=== PATIENT | female | born 1970 | race Caucasian/White ===

== ENCOUNTER → 2018-11-04 10:38 | Outpatient (CLI) | payer MEDICARE, SELFPAY ==
--- NOTE | 2018-11-04 10:54 | US_ITS ---
US thyroid COMPARISON: None HISTORY: Suspected thyroid enlargement and thyroid nodules TECHNIQUE: Targeted ultrasound the thyroid FINDINGS: The isthmus of the gland is prominent measuring 0.5 cm. The right lobe measures 1.8 x 4.1 x 1.6 cm. The left lobe measures 1.2 x 4.4 x 1.7 cm. There is a tiny hypoechoic nodules too small to characterize upper pole right lobe measuring 0.4 x 0.4 x 0.2 cm. This likely is a cyst. Is a second hypoechoic solid nodule lower pole measuring 0.8 x 0.8 x 0.7 cm. There is a third hypoechoic nodule lower pole measuring 0.5 x 0.5 0.3 cm and this likely solid as well. There is a small hypoechoic nodule mid pole left lobe measuring 0.3 x 0.5 x 0.4 cm which appears be solid. Second solid nodule seen lower pole measuring 0.6 x 1.1 x 0.7 cm. Impression: Multinodular goiter
== END ==
PROVIDERS: PCP Nurse Practitioner Family; Visit Provider Nurse Practitioner Family
DX: E04.1 Nontoxic single thyroid nodule (principal)
CPT/HCPCS: 76536

== ENCOUNTER → 2018-11-21 13:26 | Outpatient (CLI) | payer MEDICARE, SELFPAY ==
[2018-11-21 14:47] LABS: Thyroid Stimulating Hormone 1.44 uIU/ml (0.358-3.740)
[2018-11-22 08:33] LABS: Thyroid Peroxidase Antibodies 7 IU/mL (0-34)
[2018-11-23 13:55] LABS: Calcitonin <2.0 pg/mL (0.0-5.0)
[2018-11-24 06:16] LABS: Thyroid Stimulating Immunoglob <0.10 IU/L (0.00-0.55)
== END ==
PROVIDERS: Visit Provider Otolaryngology
DX: E01.0 Iodine-deficiency related diffuse (endemic) goiter (principal)
CPT/HCPCS: 36415; 82308; 84439; 84443; 84445; 86376

== ENCOUNTER → 2019-05-24 13:04 | Outpatient (CLI) | payer MEDICARE, SELFPAY ==
--- NOTE | 2019-05-24 13:07 | US_ITS ---
PROCEDURE: US THYROID CLINICAL INDICATION: Thyromegaly Follow-up thyroid nodules COMPARISON: THY US thyroid from 11/04/2018 FINDINGS: Right lobe: 4.5 x 1.3 x 1.4 cm. 3 mm cyst upper polar region stable. Ill-defined 8 mm heterogeneous area of decreased echogenicity mid polar area unchanged. Stable 4 mm hypoechoic nodule inferiorly Left lobe: 4.4 x 1.2 x 1.5 cm. 3 mm hypoechoic nodule mid polar region unchanged. 6 mm isoechoic nodule lower pole fairly well-circumscribed unchanged Isthmus: Thickened at 5 mm Additional findings: . The the IMPRESSION: Bilateral thyroid enlargement with stable bilateral nodules Dictated by: Keron Degroot MD 05/24/2019 17:37 Electronically signed by Keron Degroot MD in [place] 05/24/2019 17:37
== END ==
PROVIDERS: PCP Nurse Practitioner Family; Visit Provider Otolaryngology
DX: E01.0 Iodine-deficiency related diffuse (endemic) goiter (principal)
CPT/HCPCS: 76536

== ENCOUNTER → 2019-11-20 10:32 | Outpatient (CLI) | payer MEDICARE, MEDICAID, SELFPAY ==
--- NOTE | 2019-11-20 10:41 | US_ITS ---
PROCEDURE: US THYROID CLINICAL INDICATION: goiter COMPARISON: US THYROID from 05/24/2019 FINDINGS: Right lobe: 4.2 x 1.3 x 2 cm. Stable 4 mm hypoechoic nodule upper pole. There are 2 stable heterogeneous hypoechoic nodules in the midpole at 5 mm each. Stable 3 mm hypoechoic nodule lower pole. Left lobe: 3.8 x 1.6 by 1 cm. Stable hypoechoic nodule upper pole at 3 mm and stable isoechoic nodule lower pole at 9 mm Isthmus: 6 mm isoechoic nodule in the isthmus on the left unchanged Additional findings: IMPRESSION: Stable small bilateral thyroid nodules. Dictated by: Keron Degroot MD 11/20/2019 18:30 Electronically signed by Keron Degroot MD in [place] 11/20/2019 18:30
== END ==
PROVIDERS: PCP Nurse Practitioner Family; Visit Provider Otolaryngology
DX: E04.9 Nontoxic goiter, unspecified (principal)
CPT/HCPCS: 76536

== ENCOUNTER → 2019-11-27 13:31 | Outpatient (CLI) | payer MEDICARE, SELFPAY ==
[2019-11-27 14:58] LABS: Free T4 (Free Thyroxine) 0.94 ng/dl (0.78-2.19)
[2019-11-27 15:12] LABS: Thyroid Stimulating Hormone 1.81 uIU/mL (0.465-4.68)
[2019-11-28 15:23] LABS: Thyroid Peroxidase Antibodies <9 IU/mL (0-34)
[2019-11-30 11:13] LABS: Thyroid Stimulating Immunoglob <0.10 IU/L (0.00-0.55)
== END ==
PROVIDERS: Visit Provider Otolaryngology
DX: E04.9 Nontoxic goiter, unspecified (principal)
CPT/HCPCS: 36415; 84439; 84443; 84445; 86376

== ENCOUNTER → 2020-05-28 11:11 | Outpatient (CLI) | payer MEDICARE, MEDICAID, SELFPAY ==
--- NOTE | 2020-05-28 13:14 | US_ITS ---
PROCEDURE: US THYROID CLINICAL INDICATION: hypo 6 month follow up---- nodules seen bilaterally and at isthmus COMPARISON: US THY US thyroid from 11/04/2018 US US THYROID from 05/24/2019 US US THYROID from 11/20/2019 FINDINGS: Right lobe: 1.6cm x 4.4cm x 1.5cm Left lobe: 0.9cm x 4.5cm x 1.5cm Isthmus: A 5 mm hypoechoic nodules present on the isthmus on the left not significantly changed. There is a somewhat ill-defined 13 x 5 mm hypoechoic nodule in the right lobe posteriorly. Previously it was question if this represented 2 nodules versus 1. None the less, it is not significantly changed in size. There is a 5 mm cyst in the upper pole on the right. 6 mm hypoechoic nodule lower pole posteriorly unchanged and 2 small hypoechoic nodules in the lower pole which are nonspecific. A 4 mm hypoechoic nodules present in the mid polar region on the left. 9 mm isoechoic area in the lower pole on the left unchanged Additional findings: IMPRESSION: No change multiple bilateral thyroid nodules. Dictated by: Keron Degroot MD 05/29/2020 13:39 Keron Degroot MD in [place] 05/29/2020 13:39
[2020-05-28 14:12] LABS: Free T4 (Free Thyroxine) 0.92 ng/dl (0.78-2.19)
[2020-05-28 14:25] LABS: Thyroid Stimulating Hormone 1.72 uIU/mL (0.465-4.68)
[2020-05-30 09:07] LABS: Thyroid Peroxidase Antibodies <9 IU/mL (0-34)
[2020-05-31 10:35] LABS: Thyroid Stimulating Immunoglob <0.10 IU/L (0.00-0.55)
== END ==
PROVIDERS: PCP Nurse Practitioner Family; Visit Provider Otolaryngology
DX: E03.9 Hypothyroidism, unspecified (principal)
CPT/HCPCS: 36415; 76536; 84439; 84443; 84445; 86376

== ENCOUNTER → 2020-11-29 13:15 | Outpatient (CLI) | payer MEDICARE, MEDICAID, SELFPAY ==
--- NOTE | 2020-11-29 13:29 | US_ITS ---
PROCEDURE: US THYROID CLINICAL INDICATION: goiter COMPARISON: US US THYROID from 05/28/2020 FINDINGS: Right lobe: 4.2 x 1.4 x 1.8 cm Left lobe: 4 x 1.2 x 1.6 cm Isthmus: 0.3 cm Additional findings: Bilateral thyroid nodules are noted. The largest in the right lobe measures 1 centimeter, demonstrates hypoechogenicity and well-defined margins. The largest nodule in the left lobe measures 0.9 centimeters, demonstrates hypoechogenicity and well-defined margins. Bilateral smaller nodules measure up to 0.5 centimeters. The nodule in the isthmus measures 0.57 centimeters. IMPRESSION: Multiple nodules in both lobes of thyroid gland, demonstrate no significant interval change compared to prior study. Dictated by: Margarita Yang 11/29/2020 16:53 Margarita Yang in [place] 11/29/2020 16:53
[2020-11-29 14:31] LABS: Free T4 (Free Thyroxine) 1.02 ng/dl (0.78-2.19)
[2020-11-29 14:46] LABS: Thyroid Stimulating Hormone 1.58 uIU/mL (0.465-4.68)
== END ==
PROVIDERS: Visit Provider Otolaryngology
DX: E04.9 Nontoxic goiter, unspecified (principal)
CPT/HCPCS: 36415; 76536; 84439; 84443

== ENCOUNTER → 2021-05-26 13:23 | Outpatient (CLI) | payer MEDICARE, MEDICAID, SELFPAY ==
--- NOTE | 2021-05-26 13:27 | US_ITS ---
PROCEDURE: US THYROID CLINICAL INDICATION: hx goiter COMPARISON: US US THYROID from 05/24/2019 US US THYROID from 05/28/2020 US US THYROID from 11/29/2020 FINDINGS: Right lobe: 4.3 x 1.5 x 1.7 cm. 8 mm cyst upper pole unchanged. Six 6 mm slightly hypoechoic well-circumscribed nodule in the lower pole posteriorly unchanged. Stable 3 mm hypoechoic nodule lower pole unchanged. 3 mm cyst lower pole near the isthmus unchanged additional 3 mm hypoechoic nodule lower pole medially benign-appearing. Left lobe: 4.1 x 1.2 x 1.7 cm. Isoechoic 5 x 2 mm nodule upper pole not readily demonstrated on the previous exam benign-appearing. 5 mm slightly hypoechoic nodule mid polar region unchanged. Heterogeneous echogenicity is present in the lower pole inferiorly with an 8 x 3 mm hypoechoic region which may be part of a 12 mm isoechoic nodule probably unchanged. Isthmus: Slightly hypoechoic 5 mm nodule in the left aspect of the isthmus unchanged Additional findings: IMPRESSION: Multiple bilateral nodules as described above overall not significantly changed Dictated by: Keron Degroot MD 05/26/2021 17:52 Keron Degroot MD in [place] 05/26/2021 17:52
[2021-05-26 17:33] LABS: Thyroid Stimulating Hormone 1.18 uIU/mL (0.465-4.68)
[2021-05-29 15:17] LABS: Calcitonin <2.0 pg/mL (0.0-5.0)
== END ==
PROVIDERS: PCP Nurse Practitioner Family; Visit Provider Otolaryngology
DX: E04.9 Nontoxic goiter, unspecified (principal)
CPT/HCPCS: 36415; 76536; 82308; 84439; 84443

== ENCOUNTER → 2022-01-09 13:37 | Outpatient (CLI) | payer MEDICARE, MEDICAID, SELFPAY ==
--- NOTE | 2022-01-09 14:12 | US_ITS ---
FINAL REPORT CLINICAL HISTORY: follow up thyroid nodule COMPARISON: 05/26/2021 FINDINGS: THYROID ULTRASOUND Sonographic images of the thyroid was obtained. The right lobe of the thyroid measures 4.6 x 1.7 x 1.5 cm. The left lobe of the thyroid measures 4.5 x 1.8 x 1.2 cm. The isthmus measures 2 mm. There is a nodule in the left isthmus which is solid and hypoechoic measuring 6 mm, was 5 mm. This is visually unchanged. There is a right nodule measuring 12 mm which is solid and mostly isoechoic, TI-RADS 3, which is new or larger than previous. There are several other smaller nodules which are probably stable. There is a left nodule measuring 9 mm, previously 8 mm, which is solid and hypoechoic in the lower pole and is visually slightly larger. There are multiple other smaller left lobe nodules which are not significantly changed. IMPRESSION: New or enlarged bilateral nodules. Recommend additional follow-up in 12 months. Reviewed, Interpreted and Dictated by Hayden Collins III, MD Transcribed by Edith Montana Authenticated and [facility]
[2022-01-09 15:20] LABS: Free T4 (Free Thyroxine) 0.96 ng/dl (0.78-2.19)
[2022-01-09 15:34] LABS: Thyroid Stimulating Hormone 1.19 uIU/mL (0.465-4.68)
== END ==
PROVIDERS: PCP Nurse Practitioner Family; Visit Provider Otolaryngology
DX: E01.0 Iodine-deficiency related diffuse (endemic) goiter (principal)
CPT/HCPCS: 36415; 76536; 84439; 84443

== ENCOUNTER 2022-10-15 10:30 | Outpatient (RCR) | payer MEDICARE, MEDICAID, SELFPAY | END 2022-10-15 10:35 | disposition home or self-care (01) | LOC: PT 10:30 | PROVIDERS: PCP Nurse Practitioner Family; Visit Provider Nurse Practitioner Family | DX: M54.2 Cervicalgia (principal) | CPT/HCPCS: 97010; 97014; 97035; 97110; 97140; 97163; 97530; G0283 ==

== ENCOUNTER → 2023-01-22 12:18 | Outpatient (CLI) | payer MEDICARE, MEDICAID, SELFPAY ==
--- NOTE | 2023-01-22 12:39 | US_ITS ---
FINAL REPORT TECHNIQUE: Sonographic images of the thyroid were obtained. CLINICAL HISTORY: thyroid nodule, follow-up COMPARISON: 01/09/2022 FINDINGS: THYROID ULTRASOUND The right thyroid gland measures 4.9 x 1.8 x 1.9 cm. The left thyroid gland measures 4.4 x 1.2 x 1.6 cm. The isthmus measures 23 mm. In the right lobe of the thyroid, there is a 4 x 3 x 2 mm solid, hypoechoic TI-RADS 4 nodule. There is also a 9 x 6 x 5 mm solid, hypoechoic TI-RADS 4 nodule. There is an 11 x 8 x 10 solid isoechoic TI-RADS 3 nodule. In the left lobe of the thyroid, there is a 13 x 8 x 8 solid, isoechoic TI-RADS 3 nodule. IMPRESSION: Bilateral thyroid nodules; some are new or larger as compared to the previous exam. Since these are larger consider follow-up in 6 to 12 months. Reviewed, Interpreted and Dictated by Hayden Collins III, MD Transcribed by Kelsey Salas Authenticated and [facility]
[2023-01-22 14:57] LABS: Free T4 (Free Thyroxine) 1.05 ng/dl (0.78-2.19)
[2023-01-22 15:10] LABS: Thyroid Stimulating Hormone 1.35 uIU/mL (0.465-4.68)
== END ==
PROVIDERS: Visit Provider Otolaryngology
DX: E04.1 Nontoxic single thyroid nodule (principal)
CPT/HCPCS: 36415; 76536; 84439; 84443

== ENCOUNTER → 2023-05-10 10:33 | Outpatient (CLI) | payer MEDICARE, MEDICAID, SELFPAY ==
--- NOTE | 2023-05-10 10:33 | US_ITS ---
FINAL REPORT CLINICAL HISTORY: thriod changes COMPARISON: 01/22/2023 FINDINGS: THYROID ULTRASOUND: The right lobe of the thyroid measures 4.9 x 1.6 x 1.95 cm in size. There are 2 nodules noted in the thyroid gland, the largest of which measures 12 x 10 x 9 mm in size, was 12 x 12 x 7 mm in size on the prior ultrasound of January. This nodule is cystic and solid, isoechoic, a TI-RADS 3 category nodule. A second nodule on the right side measures 8 x 6 x 5 mm in size, which was not clearly seen on the prior ultrasound. This nodule is solid, hypoechoic, and a TI-RADS category 4 nodule. Several other small right-sided nodules are present. The left lobe of the thyroid measures 4.5 x 1.3 x 1.5 cm in size. A 1.3 cm nodule in the left thyroid remains unchanged since the prior ultrasound. Multiple other small left-sided nodules are present. The isthmus measures 4.3 mm in thickness. There is a nodule in the isthmus that measures 5 x 5 x 3 mm in size, somewhat smaller than the 7 x 6 x 3 cm measurement obtained on the prior ultrasound of January. This nodule is solid, hypoechoic, a TI-RADS 4 category nodule. IMPRESSION: Multiple thyroid nodules, given differences in technique overall not significantly changed since the prior thyroid ultrasound of January 22. Would recommend 1 year thyroid ultrasound follow-up. Reviewed, Interpreted and Dictated by Hayden Collins III, MD Transcribed by Adrianna Angelo Authenticated and [facility]
== END ==
PROVIDERS: PCP Nurse Practitioner Family; Visit Provider Nurse Practitioner
DX: E04.1 Nontoxic single thyroid nodule (principal)
CPT/HCPCS: 76536

== ENCOUNTER 2023-10-26 14:26 | Outpatient (CLI) | payer MEDICARE, MEDICAID, SELFPAY ==
--- NOTE | 2023-10-26 14:27 | US_ITS ---
FINAL REPORT CLINICAL HISTORY: hx nodules COMPARISON: 05/10/2023 FINDINGS: THYROID ULTRASOUND: This exam is compared to a prior exam dated 05/10/2023. The right lobe of the thyroid measures 5.2 x 1.4 x 2.1 cm in size. There are multiple nodules within the right lobe of the thyroid gland, the largest of which measures 13 x 9 x 9 mm in size, is solid, isoechoic, a TI-RADS category 3 nodule. This nodule is stable in size and appearance since the prior exam. There are several other smaller nodules present in the right thyroid, visually stable. The left lobe of the thyroid measures 5 x 1.4 x 1.5 cm in size. The largest nodule measures 13 x 14 x 8 mm in size, is solid, isoechoic, a TI-RADS category 3 nodule, stable when compared to the prior exam. Multiple other nodules are present in the left lobe of the thyroid, all visually stable. The isthmus measures 2.2 mm in thickness. IMPRESSION: Nodules in both the right and left thyroid glands are visually stable. The largest nodule on the right measures 13 x 9 x 9 mm in size, and is stable in appearance. The largest on the left side measures 13 x 14 x 8 mm in size, and is stable in appearance. Would consider additional follow-up in 12 months with thyroid ultrasound. Reviewed, Interpreted and Dictated by Hayden Collins III, MD Transcribed by Adrianna Angelo Authenticated and . [facility]
[2023-10-26 15:58] LABS: Free T4 (Free Thyroxine) 0.79 ng/dl (0.78-2.19)
== END 2023-10-26 23:59 ==
LOC: RAD 14:27
PROVIDERS: PCP Student in an Organized Health Care Education/Training Program; Visit Provider Nurse Practitioner
DX: E04.1 Nontoxic single thyroid nodule
CPT/HCPCS: 36415; 76536; 84439; 84443

== ENCOUNTER 2023-12-05 08:58 | Emergency (ER) | payer MEDICARE, MEDICAID, SELFPAY ==
[2023-12-05 09:30] VITALS: BP 126/76; PULSE 79; RESP 20; TEMP 36.9; O2SAT 96; BMI 28.8
[2023-12-05 09:58] LABS: Apearance,Urine Clear (Clear); Bilirubin,Urine Negative (Negative); Blood, Urine Negative (Negative); Color,Urine Yellow (Yellow); Glucose,Urine (UA) Negative (Negative); Ketones,Urine Negative (Negative); PH,Urine 5.5 (5.0-8.5); Protein,Urine Negative (Negative); UTC Leukocyte Esterase,Urine Negative (Negative); UTC Nitrate,Urine Negative (Negative); Urobilinogen,Urine 0.2 EU/dl (0.2)
--- NOTE | 2023-12-05 10:00 | EXP.UTC ---
Discharge Plan Disposition Patient Disposition: Home, Self-Care Condition: Good Prescriptions Prescriptions: New methylprednisolone 4 mg Tablets,Dose Pack 4 mg PO DIRECTED 6 Days Qty: 21 0RF Rx Instructions: Take 1 pack as directed for 6 days cefdinir 300 mg capsule 300 mg PO BID Qty: 20 0RF No Action rosuvastatin 20 mg tablet 20 mg PO DAILY Patient Comments: TAKE ONE (1) TABLET EVERY DAY BY ORAL ROUTE FOR 90 DAYS. Referrals Follow up/Referrals: Manjit Storey PA [Primary Care Provider] - See instructions Activity Restrictions/Add. Instructions Additional Instructions/Restrictions: Go home and rest. It would be best if you rested tomorrow too. No heavy lifting. No twisting. Take the oral medications as directed. Follow up with your regular doctor. GO TO THE ER FOR ANY WORSENING SYMPTOMS OR CONCERN, ESPECIALLY BOWEL OR BLADDER ISSUES, SADDLE AREA NUMBNESS, FEVER, ETC We will culture your urine. That will tell what bacteria is causing your infection and which antibiotics will treat it best. Sometimes the first antibiotic we prescribe turns out to not work against different bacteria. So, make sure you follow up within 3 days if you are not getting better. Clinical Impressions Clinical Impression: Low back pain Instructions Patient Instructions: Low Back Pain, DI for Low Back Pain, Methylprednisolone Discharge ED Provider: Stephen Mcdowell [facility] General Stated complaint: lower back pain Mode of Arrival: Ambulatory Source of Information: Patient Limitations: No Limitations Time Seen by Provider: 12/05/23 09:59 Description of Symptoms (Recalled from Triage Doc. by RN): PATIENT C/O LEFT LOWER BACK PAIN X 2 DAYS, POSSIBLE UTI HEENT Symptoms (Recalled from RN notes): No Resp Symptoms (Recalled from RN notes): No Skin Symptoms (Recalled from RN notes): No MS Symptoms (Recalled from RN notes): Yes Functional Status (Recalled from RN notes): WNL History of Present Illness Provider Complaint: She states that for the past 4 days she has had low back pain and dysuria. She denies any known injury. Related Data Home Medications Medication Instructions Recorded Confirmed rosuvastatin 20 mg tablet 20 mg PO DAILY 06/02/21 12/05/23 Previous Rx's Medication Instructions Recorded cefdinir 300 mg capsule 300 mg PO BID #20 caps 12/05/23 methylprednisolone 4 mg tablets in 4 mg PO DIRECTED 6 days #21 tabs 12/05/23 a dose pack Allergies Allergy/AdvReac Type Severity Reaction Status Date / Time Latex, Natural Rubber Allergy Verified 11/11/23 13:42 Worker's Comp Is this a Worker's Comp case?: No [facility] Disclaimer: The information contained in this section may have been updated after the patient was seen, as this information can be updated by other users. Medical History Thyromegaly Upper respiratory infection Thyroid Nodule T2DM (type 2 diabetes mellitus) Surgical History History of partial hysterectomy Family History Other Cancer Diabetes Hyperlipidemia Hypertension Social History Smoking Status: Never smoker alcohol intake: never substance use type: denies use current occupational status: unemployed Travel in the last 8 weeks: None ROS Obtained: Yes All systems reviewed & no additional complaints except as documented Constitutional Constitutional: Denies chills and Denies fever(s) Eyes Eyes: Denies eye discharge ENT Ears, Nose, Mouth, and Throat: Denies dizziness, Denies otalgia, Denies neck pain and Denies sore throat Cardiovascular Cardiovascular: Denies chest pain Respiratory Respiratory: Denies shortness of breath, Denies chest congestion, Denies cough, Denies stridor and Denies wheezing Gastrointestinal Gastrointestingal: Denies nausea or vomiting Genitourinary Female Genitourinary: Reports as per HPI, Reports dysuria, Reports urinary frequency, Denies urinary incontinence, Denies urinary hesitancy and Denies urinary urgency Musculoskeletal Musculoskeletal: Reports as per HPI, Reports back pain and Denies neck pain Integumentary/Breasts Skin/Breast: Denies rash Neurologic Neurologic: Denies dizziness and Denies paresthesias Allergic/Immunologic Allergic/Immunologic: Denies wheezing Physical Exam General General appearance: alert and in no apparent distress Head Head exam: atraumatic and normocephalic Eye Eye exam: Present normal appearance, PERRL and EOMI ENT ENT exam: Present normal exam, mucous membranes moist, TM's normal bilaterally and normal external ear exam Neck Neck exam: Present normal inspection, full ROM and trachea midline; Absent tenderness, meningismus or lymphadenopathy Chest Chest inspection: Present normal inspection and symmetric chest wall rise; Absent tenderness Respiratory Respiratory exam: Present normal lung sounds bilaterally; Absent respiratory distress, wheezes or stridor Cardiovascular Cardiovascular exam: Present regular rate, normal rhythm and normal heart sounds Abdominal Exam Abdominal exam: Present soft and normal bowel sounds; Absent distention, tenderness, guarding, rebound, rigidity, incision, psoas sign, obturator sign, heel tap sign, Willson's sign, Rovsing's sign or tenderness at McBurney's Point Extremities Exam Extremities exam: Present normal inspection, full ROM and normal capillary refill; Absent tenderness, edema, joint swelling, calf tenderness or cyanosis Back Exam Back exam: Present normal inspection and full ROM; Absent tenderness, CVA tenderness (R) or CVA tenderness (L) Neurological Exam Neurological exam: Present alert, oriented X3, CN II-XII intact, normal gait and reflexes normal; Absent motor sensory deficit Psychiatric Psychiatric exam: Present normal affect and normal mood Skin Skin exam: Present warm, dry, intact and normal color Lymphatic Lymphatic Findings: no adenopathy Medical Decision Making Medical Records Medical records reviewed: No I reviewed the patient's medical records. Liam Inquiry Pt receiving controlled substance: No Vital Signs: 12/05/23 09:30 Temperature 98.4 F Temperature Source Oral Pulse Rate [Right Brachial] 79 Respiratory Rate 20 Blood Pressure [Right Arm] 126/76 Blood Pressure Mean [Right Arm] 92 Blood Pressure Source [Right Arm] Automatic Cuff Blood Pressure Position [Right Arm] Sitting 02 Sat by Pulse Oximetry 96 Oxygen Delivery Method Room Air Lab Data Lab results reviewed: Yes I reviewed the patient's lab results. Lab Results 12/05/23 09:56: Urine Color Yellow, Urine Appearance Clear, Urine pH 5.5, Ur Specific Kendrick 1.020, Urine Protein Negative, Urine Glucose (UA) Negative, Urine Ketones Negative, Urine Blood Negative, Urine Nitrate Negative, Urine Bilirubin Negative, Urine Urobilinogen 0.2, Ur Leukocyte Esterase Negative Orders (Tests/Meds): ORDERS Category Date Time Status Urine Culture Stat Micro 12/05/23 09:56 Ordered
[2023-12-05 10:19] VITALS: BP 126/76; PULSE 79; RESP 20; TEMP 36.9; O2SAT 96
== END 2023-12-05 10:23 | disposition home or self-care (01) ==
PROVIDERS: Emergency Provider Nurse Practitioner Family; PCP Student in an Organized Health Care Education/Training Program
DX: M54.59 Other low back pain (principal); R30.0 Dysuria
CPT/HCPCS: 81003; 87086; 99204; 99212; G0463

== ENCOUNTER 2024-05-15 12:25 | Outpatient (CLI) | payer MEDICARE, MEDICAID, SELFPAY ==
--- NOTE | 2024-05-15 12:25 | US_ITS ---
PROCEDURE INFORMATION: Exam: US Soft Tissue Head and Neck, Thyroid Exam date and time: 05/15/2024 12:50 PM Age: 53 years old Clinical indication: Condition or disease; Other: Nodules; Additional info: History of thyroid nodule TECHNIQUE: Imaging protocol: Real-time ultrasound scan of the neck with image documentation. Exam focused on the thyroid. COMPARISON: US THYROID 10/26/2023 2:36 PM FINDINGS: Right thyroid lobe: Nodule in the medial aspect of the right lobe of the thyroid 6.4 x 7.3 x 5.7 mm. Larger nodule in the right lobe of the thyroid 1.2 x 1.05 x 1.04 cm. Left thyroid lobe: Left lobe of the thyroid 4.75 x 1.4 x 1.4 cm. Nodule in the lower pole left lobe of the thyroid 7.8 x 6.7 x 1.1 cm. Isthmus: Isthmus 4.9 mm. Right lobe of the thyroid 4.8 x 1.7 x 1.65 cm IMPRESSION: 1. Nodule in the medial aspect of the right lobe of the thyroid 6.4 x 7.3 x 5.7 mm. 2. Larger nodule in the right lobe of the thyroid 1.2 x 1.05 x 1.04 cm. 3. Nodule in the lower pole left lobe of the thyroid 7.8 x 6.7 x 1.1 cm.
[2024-05-15 14:16] LABS: Free T4 (Free Thyroxine) 0.92 ng/dl (0.78-2.19)
[2024-05-15 14:28] LABS: Thyroid Stimulating Hormone 1.62 uIU/mL (0.465-4.68)
== END 2024-05-15 23:59 | disposition home or self-care (01) ==
LOC: RAD 12:25
PROVIDERS: PCP Student in an Organized Health Care Education/Training Program; Visit Provider Nurse Practitioner
DX: E01.0 Iodine-deficiency related diffuse (endemic) goiter (principal)
CPT/HCPCS: 36415; 76536; 84439; 84443

== ENCOUNTER 2024-11-23 10:29 | Outpatient (CLI) | payer MEDICARE, SELFPAY ==
--- NOTE | 2024-11-23 11:00 | US_ITS ---
FINAL REPORT TECHNIQUE: Sonographic images of the thyroid gland were obtained in the longitudinal and transverse planes. CLINICAL HISTORY: history of thyroid nodules COMPARISON: 05/10/2023 FINDINGS: The right lobe measures 1.6 x 4.9 x 1.9 cm. The right lobe is homogeneous. There are several nodules which appear unchanged in the prior study. A TI-RADS 3 nodule measures 9 mm in the mid lobe. A 7 mm hypoechoic nodule in the upper pole is stable. The left lobe measures 1.4 x 4.2 x 1.5 cm. The left lobe is homogeneous. An isoechoic 10 mm TI-RADS 3 nodule is stable. Subcentimeter hypoechoic nodules are stable. The isthmus measures 3 mm. This is normal. IMPRESSION: Stable bilateral thyroid nodules. Reviewed, Interpreted and Dictated by Saira Kemp MD Transcribed by BRITNEY Pena Authenticated and [facility]
== END 2024-11-23 23:59 | disposition home or self-care (01) ==
LOC: RAD 10:30
PROVIDERS: PCP Student in an Organized Health Care Education/Training Program; Visit Provider Nurse Practitioner
DX: E01.0 Iodine-deficiency related diffuse (endemic) goiter (principal)
CPT/HCPCS: 76536

== ENCOUNTER 2024-12-12 10:45 | Outpatient (CLI) | payer MEDICARE, SELFPAY ==
[2024-12-12 12:15] LABS: Free T4 (Free Thyroxine) 0.88 ng/dl (0.78-2.19)
[2024-12-12 12:30] LABS: Thyroid Stimulating Hormone 1.78 uIU/mL (0.465-4.68)
== END 2024-12-12 23:59 | disposition home or self-care (01) ==
LOC: LAB 10:46
PROVIDERS: PCP Student in an Organized Health Care Education/Training Program; Visit Provider Nurse Practitioner
DX: E04.1 Nontoxic single thyroid nodule (principal)
CPT/HCPCS: 36415; 84439; 84443